=== PATIENT | female | born 1995 ===

== ENCOUNTER → 2017-12-14 | Outpatient (CLI) | payer OTHER ==
--- NOTE | 2017-12-14 20:38 | DIAGNOSTIC IMAGING REPORT ---
R WRIST MIN 3 VIEWS ROUTINE CLINICAL HISTORY: RIGHT WRIST PAIN pain. Trauma. COMPARISON: None. DISCUSSION: The bones and joint spaces appear intact. There is no evidence of fracture, dislocation or bony disease. There is no evidence for soft tissue swelling. IMPRESSION: Negative study. The above report was generated using voice recognition software. It may contain grammatical, syntax or spelling errors. Electronically signed by: Konrad Alvarenga M.D. 12/14/2017 8:37 PM Dictated Date/Time: 12/14/2017 8:36 PM
== END | disposition home or self-care (01) ==
LOC: C.RAD 20:16
PROVIDERS: ATTEND Family Medicine
DX: M25.531 Pain in right wrist (principal)